=== PATIENT | female | born 2000 | race Caucasian/White ===

== ENCOUNTER 2025-04-17 20:05 | Emergency (ER) | payer BC ==
--- NOTE | 2025-04-17 20:50 | ED ---
Extremity Problem HPI - General Source: patient, RN notes reviewed Mode of arrival: ambulatory Limitations: no limitations - History of Present Illness MD Complaint: extremity pain <Halley Mullen - Last Filed: 04/17/25 20:49> <Tawana Partida - Last Filed: 04/17/25 22:04> - General Chief complaint: Extremity Injury, Lower Stated complaint: R Leg Pain/Numbness Time Seen by Provider: 04/17/25 20:40 - History of Present Illness Initial comments: Quick Note: This is a 25-year-old female who presents to the emergency department for right calf pain. States that she noticed it when she woke up in the morning yesterday. Denies any injuries. States that she is concerned about a blood clot and is on OCPs. Denies any history of blood clots. Denies any chest pain or shortness of breath. (Halley Mullen) - Related Data Allergies Allergy/AdvReac Type Severity Reaction Status Date / Time azithromycin AdvReac Abdominal Verified 04/17/25 20:43 Pain Review of Systems ROS Other: All systems not noted in ROS Statement are negative. <Halley Mullen - Last Filed: 04/17/25 20:49> ROS Other: All systems not noted in ROS Statement are negative. <Tawana Partida - Last Filed: 04/17/25 22:04> ROS Statement: Those systems with pertinent positive or pertinent negative responses have been documented in the HPI. Past Medical History Past Medical History: No Reported History History of Any Multi-Drug Resistant Organisms: None Reported Past Surgical History: No Surgical Hx Reported Past Psychological History: No Psychological Hx Reported Smoking Status: Never smoker Past Alcohol Use History: Rare Past Drug Use History: None Reported <Halley Mullen - Last Filed: 04/17/25 20:49> General Exam Limitations: no limitations <Halley Mullen - Last Filed: 04/17/25 20:49> - General Exam Comments Initial Comments: Visual Physical Exam Vital signs reviewed General: Well-appearing, nontoxic, no acute distress. Head: Normocephalic, atraumatic Eyes: PERRLA, EOMI ENT: Airway patent Chest: Nonlabored breathing Skin: No visual rash, normal skin tone Neuro: Alert and oriented 3 Musculoskeletal: No gross abnormalities (Halley Mullen) Course Vital Signs 04/17/25 20:37 Temperature 99 F Pulse Rate 68 Respiratory 18 Rate Blood Pressure 143/81 O2 Sat by Pulse 100 Oximetry Medical Decision Making <Halley Mullen - Last Filed: 04/17/25 20:49> - Medical Decision Making I performed the QuickNote portion of this chart. Signed Halley Mullen PA-C. (Halley Mullen) Disposition <Halley Mullen - Last Filed: 04/17/25 20:49> Is patient prescribed a controlled substance at d/c from ED?: No <Tawana Partida - Last Filed: 04/17/25 22:04> Clinical Impression: Superficial thrombophlebitis Disposition: HOME SELF-CARE Condition: Stable Instructions (If sedation given, give patient instructions): Superficial Thrombophlebitis (ED) Additional Instructions: Utilize compression and elevation of the leg. You may take anti-inflammatory medication such as ibuprofen for swelling and discomfort. Please follow up with your doctor in 1 week. Return to the emergency department for new or worsening symptoms. Referrals: Nell Jama MD [Primary Care Provider] - 1-2 days
--- NOTE | 2025-04-17 21:40 | US ---
EXAMINATION TYPE: US venous doppler duplex LE RT DATE OF EXAM: 04/17/2025 9:21 PM COMPARISON: NONE CLINICAL INDICATION: Female, 25 years old with history of Calf pain; patient states recent injection in leg for varicose veins. no hx dvt. lump in calf. slight swelling TECHNIQUE: The lower extremity deep venous system is examined utilizing real time linear array sonog ger with graded compression, doppler sonography and color-flow sonography. Grayscale, color doppler , spectral doppler imaging performed of the deep veins of the lower extremities FINDINGS: SIDE PERFORMED: Right VESSELS IMAGED: Common Femoral Vein Deep Femoral Vein Greater Saphenous Vein * Femoral Vein Popliteal Vein Small Saphenous Vein * Proximal Calf Veins (* superficial vessels) Right Leg: Appears negative for dvt as best seen. At patients area of concern in the right calf ther e is a hypoechoic area seen without compression, ? thrombosed varicose vein ; There is normal flow, c ompressibility, vascular waveforms. IMPRESSION: 1. No evidence for deep vein thrombosis. 2. Thrombosed varicose vein in the area of palpable abnormality. [facility], , 04/17/2025 9:38 PM
[2025-04-17 22:14] VITALS: BP 125/86; PULSE 78; RESP 16; TEMP 98
== END 2025-04-17 22:09 | disposition home or self-care (01) ==
LOC: EC 20:05
DX: I80.01 Phlebitis and thrombophlebitis of superficial vessels of right lower extremity (principal); Z88.1 Allergy status to other antibiotic agents
CPT/HCPCS: 99283